=== PATIENT | female | born 2000 | race Caucasian/White ===

== ENCOUNTER → 2023-03-06 | Day surgery (SDC) | payer BC, MEDICAID ==
[~2023-03-06] VITALS: Ht 167.6 cm; Wt 107.5 kg
[~2023-03-06] MED LIST: BUPIVACAINE HCL/PF 0.5% (5MG/ML) 10ML ONE; DEXAMETHASONE 4MG/ML 1ML VIAL ONE; FENTANYL CITRATE/PF 50MCG/ML 2ML VIAL IV PRN; FENTANYL CITRATE/PF 50MCG/ML 2ML VIAL ONE; GLYCOPYRROLATE 0.2 MG/ML 2ML VIAL ONE; HYDROCODONE/ACETAMINOPHEN 5/325MG TABLET PO PRN; LACTATED RINGERS 1,000 ML IV SCH; LIDOCAINE HCL 1% 10 MG/ML 10ML VIAL ONE; MIDAZOLAM HCL 2 MG/2 ML VIAL ONE; NALOXONE HCL 0.4MG/ML VIAL IV PRN; NEOSTIGMINE METHYLSULFATE 1MG/ML 10 ML VIAL ONE; OMEP40CA20 MT; ONDANSETRON HCL 4MG/2ML INJ IV PRN; ONDANSETRON HCL 4MG/2ML INJ ONE; PROPOFOL 200MG/20ML VIAL IV ONE; ROCURONIUM BROMIDE 10MG/ML VIAL 5ML IV ONE; SUCCINYLCHOLINE CHLORIDE 200MG/10ML IV ONE
[2023-03-06 08:38] LABS: UCG SCREEN NEGATIVE
[2023-03-06 12:33] VITALS: BP 113/55
== END | disposition home or self-care (01) ==
LOC: OR 07:36
PROVIDERS: ATTEND Surgery
DX: K80.10 Calculus of gallbladder with chronic cholecystitis without obstruction (principal); Z79.899 Other long term (current) drug therapy; Z98.890 Other specified postprocedural states
CPT/HCPCS: 47562; 81025; 88304; J0330; J1100; J2250; J2405; J2704; J2710; J3010; J3490